=== PATIENT | male | born 1990 | race Two or more races ===

== ENCOUNTER → 2021-08-29 | Outpatient (CLI) | payer BC | END | disposition home or self-care (01) | LOC: LAB 15:58 | PROVIDERS: ATTEND Nurse Practitioner Family | DX: Z20.822 Contact with and (suspected) exposure to COVID-19 (principal) | CPT/HCPCS: C9803; U0003 ==

== ENCOUNTER → 2022-02-18 | Outpatient (CLI) | payer BC ==
[2022-02-18 09:19] VITALS: BP 125/88
== END | disposition home or self-care (01) ==
LOC: XYW 08:28
PROVIDERS: ATTEND Internal Medicine
DX: R07.89 Other chest pain (principal); R00.2 Palpitations; E78.5 Hyperlipidemia, unspecified; R73.9 Hyperglycemia, unspecified
CPT/HCPCS: 78452; 93017; A9500

== ENCOUNTER → 2022-04-10 | Outpatient (CLI) | payer BC ==
[2022-04-10 09:00] LABS: INR 1.01 (0.9-1.15); Partial Thromboplastin Time 28.5 sec (24.6-33.4)
== END | disposition home or self-care (01) ==
LOC: LAB 07:59
PROVIDERS: ATTEND Internal Medicine
DX: R73.9 Hyperglycemia, unspecified (principal)
CPT/HCPCS: 36415; 83036; 84484; 85379; 85610; 85730; 86431; 86703

== ENCOUNTER → 2022-08-19 | Outpatient (CLI) | payer BC ==
[2022-08-19 12:34] LABS: Cholesterol 149 mg/dL (< 200)
[2022-08-19 12:36] LABS: HDL Cholesterol 35 mg/dL (40-59); LDL Cholesterol 87 mg/dL (< 100); Triglycerides 149 mg/dL (< 150)
== END | disposition home or self-care (01) ==
LOC: LAB 11:22
PROVIDERS: ATTEND Internal Medicine
DX: R07.9 Chest pain, unspecified (principal); F41.9 Anxiety disorder, unspecified; R00.2 Palpitations
CPT/HCPCS: 36415; 80061; 83036; 84443; 84484; 85379